=== PATIENT | female | born 1980 | race Caucasian/White ===

== ENCOUNTER 2017-04-07 06:35 | Emergency (ER) | payer MEDICAID ==
[~2017-04-07] VITALS: Ht 157.5 cm; Wt 59.4 kg
[~2017-04-07 06:35] MED LIST: OME20GT
[2017-04-07 06:40] VITALS: BP 127/92
[2017-04-07] MEDS ORDERED: SODIUM CHLORIDE 0.9% 1,000 ML IVB ONE (06:55)
[2017-04-07] MEDS ORDERED: PANTOPRAZOLE 40 MG/10 ML VIAL IV ONE (07:00)
[2017-04-07] MEDS ORDERED: ONDANSETRON HCL 4 MG/2 ML VIAL IV ONE (07:00)
[2017-04-07 07:29] LABS: Basophils # (auto) 0.1 uL; Basophils % (auto) 0.8 % (0.0-2.0); Eosinophils # (auto) 0.1 uL; Hematocrit 42.5 % (36.0-46.0); Hemoglobin 14.9 g/dL (12.2-16.2); Lymphocytes # (auto) 1.7 uL; Lymphocytes % (auto) 21.4 % (10.0-50.0); Mean Corpuscular Hemoglobin 30.5 pg (28.0-32.0); Mean Corpuscular Volume 87.3 fL (80.0-100.0); Monocytes # (auto) 0.6 uL; Monocytes % (auto) 7.6 % (0.0-12.0); Neutrophils # (auto) 5.6 uL; Neutrophils % (auto) 69.2 % (37.0-80.0); Platelet Count (auto) 361 10^3/uL (140-450); Red Blood Cells 4.88 10^6/uL (4.0-5.20)
[2017-04-07 07:34] LABS: Albumin 3.9 g/dL (3.4-5.0); BUN/Creatinine Ratio 6.7; Bilirubin, Total 0.9 mg/dL (0.2-1.0); Potassium 3.5 mmol/L (3.5-5.1); Total Protein 8.9 g/dL (6.4-8.2)
[2017-04-07 07:37] LABS: Urine Bacteria FEW /hpf (None Seen); Urine Blood Negative /uL (Negative); Urine Hyaline Cast FEW /lpf (0 - 2); Urine Mucus MANY (None Seen); Urine Specific Gravity 1.023 (1.001-1.035); Urine WBC 11 /hpf (0 - 5)
[2017-04-07] MEDS ORDERED: cefTRIAXone 1GM/10ml IVPUSH 10 ML IV ONE (08:00)
== END 2017-04-07 08:21 | disposition home or self-care (01) ==
LOC: ER 06:35
DX: K21.9 Gastro-esophageal reflux disease without esophagitis (principal); I10 Essential (primary) hypertension; N39.0 Urinary tract infection, site not specified
CPT/HCPCS: 36415; 76705; 80053; 81001; 81025; 83690; 85025; 96361; 96374; 96375; 99285; C9113; J2405; J7030

== ENCOUNTER 2017-06-02 15:15 | Emergency (ER) | payer MEDICAID ==
[~2017-06-02] VITALS: Ht 157.5 cm; Wt 54.4 kg
[2017-06-02 16:38] LABS: Basophils # (auto) 0.1 uL; Basophils % (auto) 0.7 % (0.0-2.0); Eosinophils # (auto) 0.1 uL; Eosinophils % (auto) 1.2 % (0.0-7.0); Hematocrit 40.5 % (36.0-46.0); Hemoglobin 13.7 g/dL (12.2-16.2); Lymphocytes # (auto) 2.4 uL; Lymphocytes % (auto) 21.4 % (10.0-50.0); Mean Corpuscular Hemoglobin 29.8 pg (28.0-32.0); Mean Corpuscular Hgb Conc. 33.9 g/dL (32.0-36.0); Monocytes # (auto) 0.8 uL; Monocytes % (auto) 7.5 % (0.0-12.0); Neutrophils # (auto) 7.8 uL; Neutrophils % (auto) 69.2 % (37.0-80.0); Platelet Count (auto) 303 10^3/uL (140-450); Red Cell Distribution Width 13.2 % (11.8-14.3); White Blood Cell 11.2 10^3/uL (4.4-10.8)
[2017-06-02 16:58] LABS: Albumin 3.9 g/dL (3.4-5.0); BUN/Creatinine Ratio 7.5; Bilirubin, Total 0.7 mg/dL (0.2-1.0); Calcium 8.8 mg/dL (8.5-10.1); Magnesium 2.5 mg/dL (1.6-2.6); Potassium 3.9 mmol/L (3.5-5.1)
[2017-06-02 17:30] VITALS: BP 134/88
[2017-06-02] MEDS ORDERED: MORPHINE SULFATE 8mg/ml INJ SDV IV ONE (17:45)
[2017-06-02] MEDS ORDERED: PANTOPRAZOLE 40 MG/10 ML VIAL IV STA (17:45)
[2017-06-02] MEDS ORDERED: ONDANSETRON HCL 4 MG/2 ML VIAL IV ONE (17:45)
[2017-06-02] MEDS ORDERED: SODIUM CHLORIDE 0.9% 1,000 ML IVB ONE (17:45)
== END 2017-06-02 20:07 | disposition home or self-care (01) ==
LOC: ER 15:22
DX: K21.9 Gastro-esophageal reflux disease without esophagitis (principal); I10 Essential (primary) hypertension
CPT/HCPCS: 36415; 80053; 83690; 83735; 84702; 85025; 94761; 96361; 96374; 96375; 99284; C9113; J2270; J2405

== ENCOUNTER 2018-11-27 09:09 | Emergency (ER) | payer MEDICAID ==
[~2018-11-27] VITALS: Ht 157.5 cm; Wt 57.6 kg
[2018-11-27 09:37] VITALS: BP 133/75
[2018-11-27] MEDS ORDERED: ACETAMINOPHEN/CODEINE#3 (300/30mg) TAB PO ONE (10:00)
== END 2018-11-27 10:48 | disposition home or self-care (01) ==
LOC: ER 09:13
DX: J02.9 Acute pharyngitis, unspecified (principal); R51 Headache; R42 Dizziness and giddiness; K21.9 Gastro-esophageal reflux disease without esophagitis; I10 Essential (primary) hypertension